=== PATIENT | female | born 1955 | race Caucasian/White ===

== ENCOUNTER 2020-06-04 18:19 | Inpatient (IN) | payer MEDICARE, OTHER ==
[~2020-06-04] VITALS: Ht 175.3 cm; Wt 51.7 kg
[2020-06-05] MEDS ORDERED: PROGESTERONE PO ×2 (14:09)
[2020-06-05] MEDS ORDERED: TRAZ-252 PO (14:09)
[2020-06-05] MEDS ORDERED: CYAN-51 PO (14:09)
[2020-06-05] MEDS ORDERED: CITA10TA9 PO (14:09)
[2020-06-05 14:10] VITALS: BP 121/73
[2020-06-05] MEDS ORDERED: ACETAMINOPHEN 325 MG TABLET PO PRN (14:30)
[2020-06-05] MEDS ORDERED: TEMAZEPAM 7.5 MG CAPSULE PO PRN (14:30)
[2020-06-05] MEDS ORDERED: MAG HYDROX/AL HYDROX/SIMETH 30 ML UDC PO PRN (14:30)
[2020-06-05] MEDS ORDERED: BLOOD SUGAR DIAGNOSTIC 1 EACH STRIP IN ONE (14:30)
--- NOTE | 2020-06-05 14:37 | NUR ---
GPS AXLE POLISHER: NOTES DR. BARRY (BENEFITS ASSISTANT) NOTIFIED AND MADE AWARE RE: GPS ADMISSION VIA PHONE.
--- NOTE | 2020-06-05 15:33 | NUR ---
GPS ADMISSION NOTE: RECEIVED PATIENT [facility] PATIENT ARRIVED ON THIS UNIT AT 1420 VIA AMBULATORY WITH 1 EMT ESCORT. PATIENT ADMITTED ON A 5150 HOLD FOR DTS,GD. PER HOLD PATIENT ANXIOUS, RESTLESS, PATIENT HAS NOT BEEN SLEEPING, IS HALLUCINATING, SUICIDAL IDEATIONS,DELUSIONAL . PATIENT UNABLE TO CONTRACT FOR SAFETY AT THIS TIME. THE 5150 WAS REVIEWED AND THE DOCUMENTATION IN THE 5150 HOLD APPEARS TO REFLECT THE PRESENTATION OF THE PATIENT. UPON FACE TO FACE ASSESSMENT PATIENT IS CURRENTLY SITTING IN BED AWAKE, HAS NO S/S OR COMPLAINTS OF PAIN. PATIENT IS DISPLAYING NO S/S OF APPARENT DISTRESS. PATIENT BREATHING IS UNLABORED WITH EQUAL RISE AND FALL OF THE CHEST. PATIENT IS ALERT AND ORIENTATED X 3 ON ROOM AIR. PATIENT ASSISTED WITH TURING AND REPOSITIONING Q2HR AND PRN FOR COMFORT AND CIRCULATION. PATIENT HAS NO NEEDS AT THIS TIME. PATIENT IS NOTED TO BEING ANXIOUS, DISHEVELED, DISORGANIZED, COOPERATIVE, AND NEEDS REDIRECTION. PATIENT DENIES SUICIDE IDEATIONS AND HOMICIDAL IDEATIONS AT THIS TIME. PATIENT IS UNDER THE PSYCHIATRIC CARE OF DR. MONTILLA AND THE MEDICAL CARE OF DR AMIN . BOTH MD NOTIFIED WITH ORDERS . PATIENT BELONGINGS WERE INVENTORIED AND CHECKED FOR CONTRABAND. ALL CONTRABAND REMOVED AND STORED IN PATIENT HALLWAY LOCKER. PATIENT REFUSED INFLUENZA AND PNEUMONIA VACCINE PATIENT SKIN ASSESSMENT DONE SKIN INTACT AND CLEAN PATIENTS RIGHTS HANDBOOK, AND ALSO REFUSED TO SIGNS ALL PAPER WORK. PATIENT ORIENTATED TO ROOM, FLOOR, AND STAFF WITH ALL QUESTIONS ANSWERED. PATIENT EDUCATED ON THE USE OF THE CALL HARRIS. PATIENT BED SIDE RAILS ARE UP X 2 FOR SAFETY. PATIENT BED IS LOCKED, LOW AND I WILL CONTINUE TO MONITOR THIS PATIENT Q 15 MIN WITH THE HELP OF STAFF TO MAINTAIN SAFETY.
[2020-06-05 16:00] VITALS: BP 121/73
[2020-06-05 20:16] VITALS: BP 96/52
[2020-06-05 21:00] VITALS: BP 127/63
[2020-06-05] MEDS: PROGESTERONE PO SCH (21:41)
[2020-06-05] MEDS ORDERED: PROGESTERONE PO SCH (22:00)
[2020-06-06 07:54] LABS: CHOLESTEROL 175 mg/dL (<200); HDL CHOLESTEROL 53 mg/dL (40-60); LDL 107 mg/dL (0-99); TRIGLYCERIDES 97 mg/dL (30-150)
[2020-06-06 08:00] VITALS: BP 97/59
[2020-06-06 08:00] LABS: ALBUMIN 3.1 g/dL (3.4-5.0); BILIRUBIN,TOTAL 0.7 mg/dL (0.2-1.0); CALCIUM, SERUM 8.8 mg/dL (8.5-10.1); CREATININE 0.7 mg/dL (0.6-1.3); POTASSIUM 3.8 mmol/L (3.5-5.1); TOTAL PROTEIN, SERUM 6.1 g/dL (6.4-8.2)
--- NOTE | 2020-06-06 09:00 | NUR ---
RN NOTE- PT WITHDRAWN, SOFT SPOKEN QUIET CONFUSED POOR EYE CONTACT. DENIES SI HI AH VH. PT REFUSES TO GET OOB AND INTERACT. NO BEHAVIORAL ISSUES.
[2020-06-06] MEDS: CYANOCOBALAMIN 500 MCG TABLET PO SCH (09:09)
[2020-06-06] MEDS: [UNRECOGNIZED DRUG - OTHER] PO SCH (09:09)
[2020-06-06 09:58] LABS: CREATININE 0.8 mg/dL (0.6-1.3)
--- NOTE | 2020-06-06 11:48 | NUR ---
FAMILY CONTACT: SW contacted pt Michael ([phone]) for collateral contact, treatment and discharge planning. 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 He states that 5 years ago pt came off them and wishes for her not be prescribed any Benzodiazepines. also states that pt does not do well Trazodone and states that pt behavior escalated after pt was prescribed Trazodone. states that pt has never had symptoms of paranoia or bizarre behaviors and that these symptoms are new. states that pt has been having difficulty sleeping and only averages about 2 hours a night of sleep he also states that pt has lost a significant amount of weight and states that pt has been refusing to eat. states that pt went to visit her sister and in the middle of the night pt left her sisters house without a jacket and shoes and sister had to call the Fundraising Specialist's to help locate her. states that after 2 hours the Fundraising Specialist's found pt hiding in a rossi and pt would not come out. states that pt has never had thought of suicide but martinez shave thoughts of feeling worthless and having no purpose in life.
--- NOTE | 2020-06-06 12:32 | NUR ---
INITIAL DISCHARGE PLAN: Per Michael ([phone]) he wishes for pt to return home [address] [place] [id number]. SW will help form a safe and proper discharge in collaboration with .
[2020-06-06 16:00] VITALS: BP 118/70
[2020-06-06] MEDS: CITALOPRAM HYDROBROMIDE 20 MG TABLET PO SCH (17:46)
[2020-06-06 20:36] VITALS: BP 121/60
[2020-06-06] MEDS: QUETIAPINE FUMARATE 25 MG TABLET PO SCH (21:41)
[2020-06-06] MEDS: PROGESTERONE PO SCH (21:50)
[2020-06-07 08:00] VITALS: BP 151/87
[2020-06-07] MEDS: CYANOCOBALAMIN 500 MCG TABLET PO SCH (08:49)
[2020-06-07] MEDS: CITALOPRAM HYDROBROMIDE 20 MG TABLET PO SCH (08:49)
[2020-06-07] MEDS: [UNRECOGNIZED DRUG - OTHER] PO SCH (08:49)
[2020-06-07 16:00] VITALS: BP 142/73
[2020-06-07 20:15] VITALS: BP 155/90
[2020-06-07] MEDS: LORAZEPAM 0.5 MG TABLET PO PRN (20:17)
[2020-06-07 20:41] VITALS: BP 160/93
[2020-06-07 21:10] VITALS: BP 137/81
[2020-06-07] MEDS: QUETIAPINE FUMARATE 25 MG TABLET PO SCH (21:33)
[2020-06-07] MEDS: PROGESTERONE PO SCH (21:33)
--- NOTE | 2020-06-08 07:13 | NUR ---
GPS RN NOTE: PATIENT SLEPT WELL AT NIGHT. NO ACUTE CHANGES NOTED.
[2020-06-08 08:00] VITALS: BP 113/72
[2020-06-08] MEDS: CYANOCOBALAMIN 500 MCG TABLET PO SCH (08:33)
[2020-06-08] MEDS: CITALOPRAM HYDROBROMIDE 20 MG TABLET PO SCH (08:33)
[2020-06-08] MEDS: [UNRECOGNIZED DRUG - OTHER] PO SCH (08:34)
[2020-06-08] MEDS: QUETIAPINE FUMARATE 25 MG TABLET PO SCH ×2 (13:58→16:29)
[2020-06-08 16:00] VITALS: BP 130/65
[2020-06-08 20:26] VITALS: BP 113/64
[2020-06-08 20:30] VITALS: BP 113/64
[2020-06-08] MEDS: PROGESTERONE PO SCH (21:15)
[2020-06-09 08:00] VITALS: BP 112/66
[2020-06-09] MEDS: CYANOCOBALAMIN 500 MCG TABLET PO SCH (08:08)
[2020-06-09] MEDS: QUETIAPINE FUMARATE 25 MG TABLET PO SCH ×2 (08:08→16:25)
[2020-06-09] MEDS: [UNRECOGNIZED DRUG - OTHER] PO SCH (08:08)
[2020-06-09] MEDS: CITALOPRAM HYDROBROMIDE 20 MG TABLET PO SCH (08:09)
[2020-06-09 16:16] VITALS: BP 123/70
[2020-06-09 20:15] VITALS: BP 136/74
[2020-06-09] MEDS: PROGESTERONE PO SCH (21:10)
[2020-06-10 02:39] VITALS: BP 130/81
[2020-06-10] MEDS: LORAZEPAM 0.5 MG TABLET PO PRN ×3 (02:43→22:25)
--- NOTE | 2020-06-10 02:44 | NUR ---
GPS RN NOTES: ANXIOUS UPON DOING ROUNDS, PT AWAKE SITTING IN BED TOUCHING HER HAIR. ENCOURAGE PT TO EXPRESS THOUGHTS FEELINGS TO STAFF. PT QUIET BUT SEEMS ANXIOUS. VITALS CHECKED WNL. OFFERED ATIVAN PRN ORDERED. PT AGREED AND TOLERATED MEDICATION WELL. CONTINUE TO MONITOR.
[2020-06-10 08:00] VITALS: BP 132/76
[2020-06-10] MEDS: CITALOPRAM HYDROBROMIDE 20 MG TABLET PO SCH (08:38)
[2020-06-10] MEDS: QUETIAPINE FUMARATE 25 MG TABLET PO SCH ×2 (08:38→16:23)
[2020-06-10] MEDS: CYANOCOBALAMIN 500 MCG TABLET PO SCH (08:38)
[2020-06-10] MEDS: [UNRECOGNIZED DRUG - OTHER] PO SCH (08:40)
[2020-06-10] MEDS: MAGNESIUM HYDROXIDE 30 ML UDC PO PRN (11:06)
--- NOTE | 2020-06-10 11:06 | NUR ---
RN NOTE: ANXIETY PT EXHIBITING INCREASED ANXIETY AND AGITATION. PT RUMINATING RE NEEDING TO HAVE A BOWEL MOVEMENT AND FEELING HER ABDOMINAL MUSCLES ARE DISCONNECTED FROM HER RECTUM. TWIRLING HER HAIR REPEATEDLY BETWEEN HER FINGERS. MEDICATED WITH ATIVAN 0.5 MG PO AND MOM.
[2020-06-10 16:00] VITALS: BP 128/63
--- NOTE | 2020-06-10 17:37 | NUR ---
RN NOTE: DIETARY CONSULT ORDERED PT FOCUSED ON BOWEL MOVEMENT AND DX OF DIVERTICULITIS. AND SISTER REPORTED PT STOPPED EATING AND LOST 40 LBS IN RECENT MONTHS DUE TO CONSTIPATION/DIARRHEA. OFFERED MOM AND PT REFUSED. DIETARY CONSULT ORDERED.
[2020-06-10 20:21] VITALS: BP 116/72
[2020-06-10] MEDS: PROGESTERONE PO SCH (21:01)
[2020-06-10 22:13] VITALS: BP 110/71
--- NOTE | 2020-06-10 22:16 | NUR ---
GPS RN NOTES: REFUSED RESTORIL UPON DOING ROUNDS PT AWAKE. OT C/O UNABLE TO SLEEP. OFFERED RESTORIL PRN ORDERED. PT AGREED. TOOK MEDICATION OUT FROM OMNICELL. PT THEN REFUSED RESTORIL. PT STATED, "ACTUALLY, I DON'T FEEL COMFORTABLE TAKING THAT MEDICATION. SO NO THANK YOU." EXPLAIN RISKS AND BENEFITS PT STILL REFUSED. OTHER RN WITNESS RETURN MEDICATION IN OMNICELL. CONTINUE TO MONITOR
--- NOTE | 2020-06-10 22:26 | NUR ---
GPS RN NOTES: ANXIOUS PT AWAKE SITTING IN BED TOUCHING HER HAIR. ENCOURAGE PT TO EXPRESS THOUGHTS FEELINGS TO STAFF. PT FEELS ANXIOUS. VITALS CHECKED WNL. PT REQUESTED ATIVAN INSTEAD OF RESTORIL. OFFERED ATIVAN PRN ORDERED. PT AGREED AND TOLERATED MEDICATION WELL. CONTINUE TO MONITOR.
[2020-06-11 08:00] VITALS: BP 91/58
[2020-06-11] MEDS: CYANOCOBALAMIN 500 MCG TABLET PO SCH (08:18)
[2020-06-11] MEDS: QUETIAPINE FUMARATE 25 MG TABLET PO SCH ×2 (08:18→16:31)
[2020-06-11] MEDS: CITALOPRAM HYDROBROMIDE 20 MG TABLET PO SCH (08:18)
[2020-06-11] MEDS: [UNRECOGNIZED DRUG - OTHER] PO SCH (08:18)
--- NOTE | 2020-06-11 15:30 | NUR ---
FAMILY CONTACT: RODERICK contacted pt Michael ([phone]) to provide him with updated information. is requesting a neuro consult and also requested to be notified when pts PC hearing will be held because he wishes to attend the hearing. RODERICK forwarded the call to the nurses station so he could speak to pts nurse regarding a neuro consult.
[2020-06-11 16:00] VITALS: BP 112/57
[2020-06-11] MEDS: ENSURE ENLIVE 237 ML LIQUID (VANILLA) PO SCH (18:06)
[2020-06-11 20:31] VITALS: BP 149/82
[2020-06-11] MEDS: PROGESTERONE PO SCH (21:10)
[2020-06-11 22:11] VITALS: BP 112/65
[2020-06-11] MEDS: LORAZEPAM 0.5 MG TABLET PO PRN (22:16)
[2020-06-12] MEDS: ENSURE ENLIVE 237 ML LIQUID (VANILLA) PO SCH ×2 (07:53→12:34)
[2020-06-12 08:00] VITALS: BP 143/92
[2020-06-12] MEDS: QUETIAPINE FUMARATE 25 MG TABLET PO SCH ×2 (08:09→16:09)
[2020-06-12] MEDS: CITALOPRAM HYDROBROMIDE 20 MG TABLET PO SCH ×2 (08:09→08:51)
[2020-06-12] MEDS: CYANOCOBALAMIN 500 MCG TABLET PO SCH (08:09)
[2020-06-12] MEDS: [UNRECOGNIZED DRUG - OTHER] PO SCH (08:15)
--- NOTE | 2020-06-12 08:24 | NUR ---
PC HEARING NOTIFICATION: SW contacted pt Michael ([phone]) to inform him of pts PC Hearing on this present day. Per , he wishes to attend the hearing. SW informed him that she will make the advocate aware.
--- NOTE | 2020-06-12 13:40 | NUR ---
FAMILY CONTACT: SW contacted pt Michael ([phone]) to inform him of pts PC Hearing outcome; and informed him that the 14 day hold was upheld for grave disability, SW informed him that pt did not want to attend the hearing and expressed that she wanted her to be informed of hearing outcomes. agreed with outcome.
[2020-06-12] MEDS: ENSURE ENLIVE CHOC 237 ML CAN PO SCH ×2 (14:13→16:09)
[2020-06-12 16:00] VITALS: BP 124/69
[2020-06-12] MEDS: LORAZEPAM 0.5 MG TABLET PO PRN (20:09)
--- NOTE | 2020-06-12 20:11 | NUR ---
GPS RN NOTE: ANXIETY PT. C/O OF BEING ANXIOUS. ADMINISTERED ATIVAN 0.5 MG PO PRN ORDERED. WILL CONTINUE TO MONITOR FOR SAFETY AND BEHAVIOR.
[2020-06-12 20:47] VITALS: BP 130/76
[2020-06-12] MEDS: PROGESTERONE PO SCH (21:36)
[2020-06-13 08:00] VITALS: BP 100/59
[2020-06-13] MEDS: CYANOCOBALAMIN 500 MCG TABLET PO SCH (08:00)
[2020-06-13] MEDS: [UNRECOGNIZED DRUG - OTHER] PO SCH (08:01)
[2020-06-13] MEDS: CITALOPRAM HYDROBROMIDE 20 MG TABLET PO SCH (08:01)
[2020-06-13] MEDS: QUETIAPINE FUMARATE 25 MG TABLET PO SCH ×2 (08:01→16:12)
[2020-06-13] MEDS: ENSURE ENLIVE CHOC 237 ML CAN PO SCH ×3 (08:12→17:11)
--- NOTE | 2020-06-13 09:14 | NUR ---
FAMILY CONTACT: RODERICK contacted pt Michael ([phone]) to inform him MD will be discharging pt on Thursday06/15/20. agrees with discharge plan and states he will be here between 12:00pm-1:00pm on Thursday.
[2020-06-13] MEDS: MAGNESIUM HYDROXIDE 30 ML UDC PO PRN (14:08)
[2020-06-13] MEDS: LORAZEPAM 0.5 MG TABLET PO PRN ×2 (14:10→20:22)
--- NOTE | 2020-06-13 14:11 | NUR ---
RN-CO: ATIVAN 0.5 MG PO FOR C/O ANXIETY.
[2020-06-13 16:00] VITALS: BP 100/70
[2020-06-13 21:12] VITALS: BP 138/85
[2020-06-13] MEDS: PROGESTERONE PO SCH (21:35)
[2020-06-14] MEDS: ENSURE ENLIVE CHOC 237 ML CAN PO SCH ×3 (07:59→16:00)
[2020-06-14 08:00] VITALS: BP 127/78
[2020-06-14] MEDS: CYANOCOBALAMIN 500 MCG TABLET PO SCH (08:16)
[2020-06-14] MEDS: QUETIAPINE FUMARATE 25 MG TABLET PO SCH ×2 (08:16→16:06)
[2020-06-14] MEDS: CITALOPRAM HYDROBROMIDE 20 MG TABLET PO SCH (08:16)
[2020-06-14] MEDS: [UNRECOGNIZED DRUG - OTHER] PO SCH (08:16)
--- NOTE | 2020-06-14 12:23 | NUR ---
RODERICK COORDINATION OF CARE: RODERICK contacted Psychiatrist: Dr. Castillo Red Address: [address], [place] [address] and left a voicemail for callback to schedule an appointment. RODERICK also contacted Systems Design Engineer: Dr. Dev Prado Address: [address] [facility] [address], [place] [address] and left a voicemail for callback to schedule an appointment.
--- NOTE | 2020-06-14 12:24 | NUR ---
FAMILY CONTACT: SW contacted pt Michael ([phone]) to confirm discharge for tomorrow. stated he will be here at 1300 and stated he has called Psychiatrist: Dr. Castillo Red Address: [address] [address] and has also left a voicemail for callback to schedule an appointment.
[2020-06-14 16:00] VITALS: BP 124/77
[2020-06-14 20:40] VITALS: BP 145/84
[2020-06-14] MEDS: PROGESTERONE PO SCH (21:27)
[2020-06-14] MEDS: LORAZEPAM 0.5 MG TABLET PO PRN (22:39)
--- NOTE | 2020-06-14 22:41 | NUR ---
NURSES NOTES: PATIENT ADMITS TO BEING ANXIOUS, ALSO NOTED THE PATIENT TO BE PARANOID, SHE THINKS THERE WILL BE N0O NURSES COMING FOR THE DAY SHIFT. ASSURED PATIENT THAT THERE WILL ALWAYS BE A NURSE TAKING CARE OF HER. ATIVAN 0.5 MG GIVEN ORALLY. WILL CONTINUE TO MONITOR PATIENT.
--- NOTE | 2020-06-15 08:16 | NUR ---
DISCHARGE NOTE: Pt will be discharged via private vehicle at 1:00pm [address] [place] [address]. Pts Michael ([phone]) will be picking pt up and transporting home. Pts mood is euthymic with congruent affect, pt denies visual/auditory hallucinations and denies suicidal/homicidal ideation. Pt is ambulatory and appears appropriately dressed and groomed. Pt is currently on a waiting list to see Psychiatrist: Dr. Castillo Red Address: [address], [place] [address] via telehealth. Per , pts insurance does not cover any other psychiatrist and he will be paying out of picket to see this psychiatrist. Pt will also be following up with Regulatory Affairs Portfolio Leader: Dr. Dev Prado Address: [address] [facility] [address] [address] on 07/04/20 at 9:00am. The multidisciplinary exit care form was done, printed, signed, and given to the patient.
--- NOTE | 2020-06-15 08:17 | NUR ---
GPS/RN-NOTES RECEIVED T.O DISCHARGE ORDER FROM DR. MONTILLA,WILL CONTINUE ROUTINE MEDICATIONS WITH ONE MONTH SUPPLY. NOTED AND CARRIED OUT.
[2020-06-15] MEDS: CYANOCOBALAMIN 500 MCG TABLET PO SCH (09:06)
[2020-06-15] MEDS: ENSURE ENLIVE CHOC 237 ML CAN PO SCH ×2 (09:06→12:03)
[2020-06-15] MEDS: CITALOPRAM HYDROBROMIDE 20 MG TABLET PO SCH (09:06)
[2020-06-15] MEDS: QUETIAPINE FUMARATE 25 MG TABLET PO SCH (09:06)
[2020-06-15] MEDS: [UNRECOGNIZED DRUG - OTHER] PO SCH (09:07)
[2020-06-15 09:18] VITALS: BP 137/81
--- NOTE | 2020-06-15 12:30 | NUR ---
GPS/RN-DISCHARGE NOTES PATIENT WAS DISCHARGE TO HOME WITH MAN( ) TODAY. PATIENT DID NOT VERBALIZE SI/HI,DENIES VISUAL/AUDITORY HALLUCINATIONS AT THE TIME OF DISCHARGE. OFFERED FLU AND PNA VACCINE BUT PATIENT STATED" I WILL GET IT SOMEWHERE AND I WILL JUST WAIT AT THIS TIME". INSTRUCTED PATIENT TO GO TO THE NEAREST EMERGENCY FACILITY [facility]. PATIENT WAS REFUSED TO SIGN ALL DISCHARGE PAPERS.PATIENT LEFT THE UNIT ALERT ORIENTED X4,NO ACUTE DISTRESS NOTED,AMBULATORY STEADY GAIT. 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 RX WAS REVIEWED WITH THE . ALL BELONGINGS WAS GIVEN BACK TO THE PATIENT. MASK WAS GIVEN TO THE PATIENT ON DISCHARGE. Addendum: 06/15/20 at 1406 by NATALIA VELASQUEZ RN IN ADDITION FOR MY ABOVE NOTES DR. MAYBERRY MADE AWARE OF THE DISCHARGE.
== END 2020-06-15 12:30 | disposition home or self-care (01) | DRG 885 ==
LOC: GPS 06-05 13:37
PROVIDERS: ADMIT Psychiatry & Neurology Psychiatry; ATTEND Internal Medicine
DX: F33.3 Major depressive disorder, recurrent, severe with psychotic symptoms (principal); F01.50 Vascular dementia, unspecified severity, without behavioral disturbance, psychotic disturbance, mood disturbance, and anxiety; F29 Unspecified psychosis not due to a substance or known physiological condition; F41.9 Anxiety disorder, unspecified; E78.5 Hyperlipidemia, unspecified; K57.90 Diverticulosis of intestine, part unspecified, without perforation or abscess without bleeding; G47.00 Insomnia, unspecified
CPT/HCPCS: 36415; 80053-TC; 80061-TC; 82565-TC; 82962-TC; 87081-TC